=== PATIENT | female | born 1980 | race Caucasian/White ===

== ENCOUNTER → 2018-10-24 | Outpatient (REF) | payer OTHER ==
[2018-10-24 13:09] LABS: HEMATOCRIT 37.1 % (36.0-47.0); HEMOGLOBIN 12.2 g/dl (12.0-15.5); MEAN CORPUSCULAR HEMOGLOBIN 27.7 pg (27.0-33.0); MEAN CORPUSCULAR HGB CONC 32.9 g/dl (32.0-36.5); MEAN CORPUSCULAR VOLUME 84.1 fl (80.0-96.0); PLATELET COUNT, AUTOMATED 322 10^3/uL (150-450); RED BLOOD COUNT 4.41 10^6/uL (4.00-5.40); WHITE BLOOD COUNT 8.8 10^3/uL (4.0-10.0)
[2018-10-24 14:10] LABS: ALBUMIN 3.4 GM/DL (3.2-5.2); ALT/SGPT 25 U/L (12-78); BILIRUBIN,TOTAL 0.4 MG/DL (0.2-1.0); BLOOD UREA NITROGEN 10 MG/DL (7-18); CALCIUM LEVEL 8.2 MG/DL (8.5-10.1); CARBON DIOXIDE LEVEL 26 MEQ/L (21-32); CHLORIDE LEVEL 106 MEQ/L (98-107); CHOLESTEROL LEVEL 191 MG/DL (<200); CHOLESTEROL RISK RATIO 6.821 (<5); GLOMERULAR FILTRATION RATE > 60.0 (>60); GLUCOSE, FASTING 100 MG/DL (70-100); HDL CHOLESTEROL 28 MG/DL (>40); LDL CHOLESTEROL 115 MG/DL (<100); MAGNESIUM LEVEL 2.3 MG/DL (1.8-2.4); NON-HDL-C 163 MG/DL; POTASSIUM SERUM 4.1 MEQ/L (3.5-5.1); SODIUM LEVEL 141 MEQ/L (136-145); THYROID STIMULATING HORMONE 0.327 uIU/ML (0.358-3.740); TOTAL PROTEIN 6.8 GM/DL (6.4-8.2); TRIGLYCERIDES LEVEL 242 MG/DL (<150)
== END ==
LOC: M SFHCADAM 08:58
PROVIDERS: ATTEND Physician Assistant
DX: I10 Essential (primary) hypertension (principal); G43.109 Migraine with aura, not intractable, without status migrainosus; E66.01 Morbid (severe) obesity due to excess calories

== ENCOUNTER → 2019-01-20 | Outpatient (CLI) | payer OTHER, SELFPAY ==
[2019-01-20 17:13] LABS: ALBUMIN 3.4 GM/DL (3.2-5.2); ALT/SGPT 28 U/L (12-78); BILIRUBIN,TOTAL 0.4 MG/DL (0.2-1.0); BLOOD UREA NITROGEN 13 MG/DL (7-18); CALCIUM LEVEL 8.4 MG/DL (8.5-10.1); CARBON DIOXIDE LEVEL 28 MEQ/L (21-32); CHLORIDE LEVEL 107 MEQ/L (98-107); CHOLESTEROL LEVEL 167 MG/DL (<200); CHOLESTEROL RISK RATIO 5.964 (<5); GLOMERULAR FILTRATION RATE > 60.0 (>60); GLUCOSE, FASTING 94 MG/DL (70-100); HDL CHOLESTEROL 28 MG/DL (>40); LDL CHOLESTEROL 108 MG/DL (<100); NON-HDL-C 139 MG/DL; POTASSIUM SERUM 4.3 MEQ/L (3.5-5.1); SODIUM LEVEL 142 MEQ/L (136-145); THYROID STIMULATING HORMONE 0.312 uIU/ML (0.358-3.740); TOTAL PROTEIN 6.9 GM/DL (6.4-8.2); TRIGLYCERIDES LEVEL 154 MG/DL (<150)
== END ==
LOC: M ADAMS 09:05
PROVIDERS: ATTEND Physician Assistant
DX: I10 Essential (primary) hypertension (principal); E78.2 Mixed hyperlipidemia; E05.90 Thyrotoxicosis, unspecified without thyrotoxic crisis or storm

== ENCOUNTER → 2019-06-30 | Outpatient (CLI) | payer OTHER, SELFPAY ==
[2019-06-30 18:05] LABS: ALBUMIN 3.5 GM/DL (3.2-5.2); ALT/SGPT 24 U/L (12-78); BILIRUBIN,TOTAL 0.4 MG/DL (0.2-1.0); BLOOD UREA NITROGEN 12 MG/DL (7-18); CALCIUM LEVEL 8.6 MG/DL (8.5-10.1); CARBON DIOXIDE LEVEL 29 MEQ/L (21-32); CHLORIDE LEVEL 107 MEQ/L (98-107); CHOLESTEROL LEVEL 190 MG/DL (<200); CHOLESTEROL RISK RATIO 6.129 (<5); GLOMERULAR FILTRATION RATE > 60.0 (>58); GLUCOSE, FASTING 104 MG/DL (70-100); HDL CHOLESTEROL 31 MG/DL (>40); LDL CHOLESTEROL 127 MG/DL (<100); NON-HDL-C 159 MG/DL; POTASSIUM SERUM 4.2 MEQ/L (3.5-5.1); SODIUM LEVEL 140 MEQ/L (136-145); TOTAL PROTEIN 7.3 GM/DL (6.4-8.2); TRIGLYCERIDES LEVEL 158 MG/DL (<150)
== END ==
LOC: M LABDRWAD 08:36
PROVIDERS: ATTEND Physician Assistant
DX: I10 Essential (primary) hypertension (principal); E78.2 Mixed hyperlipidemia; E05.90 Thyrotoxicosis, unspecified without thyrotoxic crisis or storm

== ENCOUNTER → 2019-12-25 | Outpatient (REF) | payer OTHER ==
[2019-12-25 17:20] LABS: ALBUMIN 3.7 GM/DL (3.2-5.2); ALT/SGPT 28 U/L (12-78); BILIRUBIN,TOTAL 0.4 MG/DL (0.2-1.0); BLOOD UREA NITROGEN 13 MG/DL (7-18); CALCIUM LEVEL 8.7 MG/DL (8.5-10.1); CARBON DIOXIDE LEVEL 26 MEQ/L (21-32); CHLORIDE LEVEL 108 MEQ/L (98-107); CHOLESTEROL LEVEL 200 MG/DL (<200); CHOLESTEROL RISK RATIO 5.405 (<5); CREATININE FOR GFR 0.78 MG/DL (0.55-1.30); GLOMERULAR FILTRATION RATE > 60.0 (>58); GLUCOSE, FASTING 97 MG/DL (70-100); HDL CHOLESTEROL 37 MG/DL (>40); LDL CHOLESTEROL 134 MG/DL (<100); NON-HDL-C 163 MG/DL; POTASSIUM SERUM 4.3 MEQ/L (3.5-5.1); SODIUM LEVEL 141 MEQ/L (136-145); THYROID STIMULATING HORMONE 0.638 uIU/ML (0.358-3.740); TOTAL PROTEIN 7.3 GM/DL (6.4-8.2); TRIGLYCERIDES LEVEL 146 MG/DL (<150)
== END ==
LOC: M SFHCADAM 13:04
PROVIDERS: ATTEND Physician Assistant
DX: I10 Essential (primary) hypertension (principal); E78.2 Mixed hyperlipidemia; E05.90 Thyrotoxicosis, unspecified without thyrotoxic crisis or storm

== ENCOUNTER → 2020-06-26 | Outpatient (REF) | payer OTHER, SELFPAY ==
[2020-06-26 13:14] LABS: ALBUMIN 3.5 GM/DL (3.2-5.2); ALT/SGPT 29 U/L (12-78); BILIRUBIN,TOTAL 0.4 MG/DL (0.2-1.0); BLOOD UREA NITROGEN 10 MG/DL (7-18); CALCIUM LEVEL 8.9 MG/DL (8.5-10.1); CARBON DIOXIDE LEVEL 28 MEQ/L (21-32); CHLORIDE LEVEL 107 MEQ/L (98-107); CHOLESTEROL LEVEL 213 MG/DL (<200); CHOLESTEROL RISK RATIO 7.607 (<5); CREATININE FOR GFR 0.74 MG/DL (0.55-1.30); GLOMERULAR FILTRATION RATE > 60.0 (>58); GLUCOSE, FASTING 118 MG/DL (70-100); HDL CHOLESTEROL 28 MG/DL (>40); LDL CHOLESTEROL 151 MG/DL (<100); NON-HDL-C 185 MG/DL; POTASSIUM SERUM 4.2 MEQ/L (3.5-5.1); SODIUM LEVEL 139 MEQ/L (136-145); THYROID STIMULATING HORMONE 0.822 uIU/ML (0.358-3.740); TOTAL PROTEIN 7.1 GM/DL (6.4-8.2); TRIGLYCERIDES LEVEL 170 MG/DL (<150)
== END ==
LOC: M SFHCADAM 08:24
PROVIDERS: ATTEND Physician Assistant
DX: I10 Essential (primary) hypertension (principal); E78.2 Mixed hyperlipidemia; E05.90 Thyrotoxicosis, unspecified without thyrotoxic crisis or storm

== ENCOUNTER → 2020-10-16 | Outpatient (REF) | payer OTHER ==
[2020-10-16 14:01] LABS: ALBUMIN 3.5 GM/DL (3.2-5.2); ALT/SGPT 31 U/L (12-78); BILIRUBIN,TOTAL 0.3 MG/DL (0.2-1.0); BLOOD UREA NITROGEN 13 MG/DL (7-18); CALCIUM LEVEL 8.7 MG/DL (8.5-10.1); CARBON DIOXIDE LEVEL 29 MEQ/L (21-32); CHLORIDE LEVEL 107 MEQ/L (98-107); CHOLESTEROL LEVEL 208 MG/DL (<200); CHOLESTEROL RISK RATIO 6.709 (<5); CREATININE FOR GFR 0.86 MG/DL (0.55-1.30); GLOMERULAR FILTRATION RATE > 60.0 (>58); GLUCOSE, FASTING 98 MG/DL (70-100); HDL CHOLESTEROL 31 MG/DL (>40); LDL CHOLESTEROL 146 MG/DL (<100); NON-HDL-C 177 MG/DL; POTASSIUM SERUM 4.5 MEQ/L (3.5-5.1); SODIUM LEVEL 142 MEQ/L (136-145); THYROID STIMULATING HORMONE 0.922 uIU/ML (0.358-3.740); TOTAL PROTEIN 7.3 GM/DL (6.4-8.2); TRIGLYCERIDES LEVEL 156 MG/DL (<150)
== END ==
LOC: M SFHCADAM 08:13
PROVIDERS: ATTEND Physician Assistant
DX: E78.2 Mixed hyperlipidemia (principal); I10 Essential (primary) hypertension; E05.90 Thyrotoxicosis, unspecified without thyrotoxic crisis or storm

== ENCOUNTER 2021-01-28 08:51 | Emergency (ER) | payer OTHER ==
[~2021-01-28] VITALS: Ht 167.6 cm; Wt 156.6 kg
[2021-01-28] MEDS ORDERED: SM P325T2 (09:03)
[2021-01-28] MEDS ORDERED: LISI20TA33 (09:03)
[2021-01-28] MEDS ORDERED: METH-1164 (09:03)
[2021-01-28] MEDS ORDERED: ONDA8TAB10 (09:03)
[2021-01-28] MEDS ORDERED: INDO-16 (09:03)
[2021-01-28] MEDS ORDERED: LIDOCAINE 5% (LIDODERM) PATCH TD ONE (11:20)
[2021-01-28] MEDS ORDERED: CYCLOBENZAPRINE 10MG TABLET PO ONE (11:20)
[2021-01-28] MEDS ORDERED: ACETAMINOPHEN 500 MG TAB PO ONE (11:20)
--- NOTE | 2021-01-28 12:20 | REP ---
INDICATION: midline low back pain COMPARISON: None. TECHNIQUE: AP, lateral, bilateral oblique, and coned-down views of the lumbar spine. FINDINGS: Alignment and lordosis maintained. Vertebral bodies are intact. No acute fracture/compression injury or subluxation. No obvious spondylolysis or spondylolisthesis. Moderate multilevel degenerative changes include endplate sclerosis with very subtle early marginal spurring and facet hypertrophy. Disc space narrowing at L5-S1 and L4-5 noted as well.. IMPRESSION: Moderate multilevel degenerative changes. <Electronically signed by Ariel Levi > 01/28/21 [id number]
[2021-01-28] MEDS ORDERED: ONDANSETRON 4 MG ORAL DISINTEGRATING TAB PO ONE (12:25)
[2021-01-28] MEDS ORDERED: CYCL5TAB PO (13:05)
[2021-01-28] MEDS ORDERED: LIDO5DIS41 TOP (13:05)
[2021-01-28 13:09] VITALS: BP 142/91
[2021-01-28] MEDS ORDERED: **NOTE PATIENT COMMENT** MISC XX ONE (23:30)
== END 2021-01-28 13:21 | disposition home or self-care (01) ==
LOC: M ED 08:51
DX: S39.012A Strain of muscle, fascia and tendon of lower back, initial encounter (principal); X50.1XXA Overexertion from prolonged static or awkward postures, initial encounter; Y92.9 Unspecified place or not applicable; Y93.9 Activity, unspecified; Y99.9 Unspecified external cause status; M51.36 Other intervertebral disc degeneration, lumbar region; E66.9 Obesity, unspecified; I10 Essential (primary) hypertension; G43.909 Migraine, unspecified, not intractable, without status migrainosus; M51.37 Other intervertebral disc degeneration, lumbosacral region
CPT/HCPCS: 72110; 84702; 99283; Q0162

== ENCOUNTER → 2021-02-10 | Outpatient (CLI) | payer OTHER ==
[~2021-02-10] MED LIST: CYCL5TAB PO; INDO-16; LIDO5DIS41 TOP; LISI20TA33; METH-1164; ONDA8TAB10; PROHANCE 279.3MG/ML 15ML VIAL As Ordered ONE; PROHANCE 279.3MG/ML 5ML VIAL As Ordered ONE; SM P325T2
== END ==
LOC: M RAD 16:56
PROVIDERS: ATTEND Physician Assistant
DX: Z53.8 Procedure and treatment not carried out for other reasons (principal)

== ENCOUNTER → 2021-03-03 | Outpatient (CLI) | payer OTHER ==
--- NOTE | 2021-03-03 22:00 | REPVR ---
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 Contrast material: PROHANCE; Contrast volume: 20 ml; Contrast route: INTRAVENOUS (IV); COMPARISON: No relevant prior studies available. FINDINGS: There is a 2 cm mucous retention cyst right maxillary sinus. 3.9 cm in height by 2.2 cm AP dimension by 3.4 cm in transverse dimension sellar and suprasellar lobular mass lesion. At the level of the sella turcica this mass fills the sella turcica and extends into the right left cavernous sinus. There is severe superior extension of this mass impressing on the optic chiasm. The optic chiasm is elevated to the level of the 3rd ventricle. Vessels of the [id number] are severely elevated including the A1 segments and pericallosal vessels. This is bright signal intensity on the T1 and low signal intensity on T2 very suspicious for a hemorrhagic lesion. This may represent an acute hemorrhagic bleed into the pituitary gland/pituitary apoplexy. The size of this may be related to massive bleed or additional large underlying adrenal mass that has hemorrhage. There is subtle peripheral enhancement. IMPRESSION: 1. Suspect acute bleed into the pituitary/pituitary apoplexy. 2. Massive lobular structure 3.9 x 2.2 x 3.4 cm and blood signal intensity. This extends into the cavernous sinus right and left and displaces the optic chiasm and A1 segment of the internal carotid arteries. Also suspect bright signal intensity blood extending into the 3rd ventricle. Electronically signed by: Marcial Franks On 03/03/2021 21:59:31 PM
== END ==
LOC: M RAD 17:20
PROVIDERS: ATTEND Physician Assistant
DX: J34.1 Cyst and mucocele of nose and nasal sinus (principal); H53.9 Unspecified visual disturbance
CPT/HCPCS: 70553; A9576

== ENCOUNTER → 2021-04-28 | Outpatient (REF) | payer OTHER ==
[~2021-04-28] MED LIST changes: -PROHANCE 279.3MG/ML 15ML VIAL As Ordered ONE; -PROHANCE 279.3MG/ML 5ML VIAL As Ordered ONE
[2021-04-28 14:29] LABS: ALBUMIN 3.2 GM/DL (3.2-5.2); ALT/SGPT 26 U/L (12-78); BILIRUBIN,TOTAL 0.7 MG/DL (0.2-1.0); BLOOD UREA NITROGEN 13 MG/DL (7-18); CALCIUM LEVEL 8.3 MG/DL (8.5-10.1); CARBON DIOXIDE LEVEL 24 MEQ/L (21-32); CHLORIDE LEVEL 107 MEQ/L (98-107); CHOLESTEROL LEVEL 232 MG/DL (<200); CHOLESTEROL RISK RATIO 7.733 (<5); CREATININE FOR GFR 0.82 MG/DL (0.55-1.30); GLOMERULAR FILTRATION RATE > 60.0 (>58); GLUCOSE, FASTING 119 MG/DL (70-100); HDL CHOLESTEROL 30 MG/DL (>40); LDL CHOLESTEROL 161 MG/DL (<100); NON-HDL-C 202 MG/DL; POTASSIUM SERUM 4.3 MEQ/L (3.5-5.1); SODIUM LEVEL 139 MEQ/L (136-145); TOTAL PROTEIN 6.9 GM/DL (6.4-8.2); TRIGLYCERIDES LEVEL 206 MG/DL (<150)
== END ==
LOC: M SFHCADAM 08:30
PROVIDERS: ATTEND Physician Assistant
DX: E78.2 Mixed hyperlipidemia (principal); I10 Essential (primary) hypertension; E05.90 Thyrotoxicosis, unspecified without thyrotoxic crisis or storm

== ENCOUNTER → 2021-04-28 | Outpatient (REF) | payer OTHER ==
[2021-04-28 13:18] LABS: BLOOD UREA NITROGEN 12 MG/DL (7-18); CALCIUM LEVEL 8.6 MG/DL (8.5-10.1); CARBON DIOXIDE LEVEL 25 MEQ/L (21-32); CHLORIDE LEVEL 107 MEQ/L (98-107); CREATININE FOR GFR 0.83 MG/DL (0.55-1.30); GLOMERULAR FILTRATION RATE > 60.0 (>58); GLUCOSE, FASTING 123 MG/DL (70-100); POTASSIUM SERUM 4.2 MEQ/L (3.5-5.1); SODIUM LEVEL 138 MEQ/L (136-145)
[2021-04-28 13:40] LABS: CORTISOL AM 8.7 UG/DL (4.3-22.4)
== END ==
LOC: M LABDRWAD 12:10
PROVIDERS: ATTEND Internal Medicine Endocrinology, Diabetes & Metabolism
DX: D35.2 Benign neoplasm of pituitary gland (principal)

== ENCOUNTER → 2021-05-05 | Outpatient (REF) | payer OTHER ==
[~2021-05-05] MED LIST changes: +ONDA-84; -ONDA8TAB10
[2021-05-05 14:56] LABS: HEMOGLOBIN A1c 6.2 %
== END ==
LOC: M SFHCADAM 10:32
PROVIDERS: ATTEND Physician Assistant
DX: R73.9 Hyperglycemia, unspecified (principal)

== ENCOUNTER → 2021-08-04 | Outpatient (REF) | payer OTHER ==
[2021-08-04 12:56] LABS: ALBUMIN 3.6 GM/DL (3.2-5.2); ALT/SGPT 29 U/L (12-78); BILIRUBIN,TOTAL 0.5 MG/DL (0.2-1.0); BLOOD UREA NITROGEN 12 MG/DL (7-18); CALCIUM LEVEL 9.1 MG/DL (8.5-10.1); CARBON DIOXIDE LEVEL 27 MEQ/L (21-32); CHLORIDE LEVEL 109 MEQ/L (98-107); CHOLESTEROL LEVEL 160 MG/DL (<200); CHOLESTEROL RISK RATIO 5.333 (<5); CREATININE FOR GFR 0.78 MG/DL (0.55-1.30); GLOMERULAR FILTRATION RATE > 60.0 (>58); GLUCOSE, FASTING 109 MG/DL (70-100); HDL CHOLESTEROL 30 MG/DL (>40); LDL CHOLESTEROL 97 MG/DL (<100); NON-HDL-C 130 MG/DL; POTASSIUM SERUM 4.2 MEQ/L (3.5-5.1); SODIUM LEVEL 142 MEQ/L (136-145); TOTAL PROTEIN 7.6 GM/DL (6.4-8.2); TRIGLYCERIDES LEVEL 163 MG/DL (<150)
[2021-08-04 13:06] LABS: HEMOGLOBIN A1c 6.6 %
== END ==
LOC: M SFHCADAM 11:22
PROVIDERS: ATTEND Physician Assistant
DX: I10 Essential (primary) hypertension (principal); E78.2 Mixed hyperlipidemia; R73.9 Hyperglycemia, unspecified

== ENCOUNTER → 2021-11-03 | Outpatient (REF) | payer OTHER | LOC: M SFHCADAM 09:38 | PROVIDERS: ATTEND Physician Assistant | DX: Z53.9 Procedure and treatment not carried out, unspecified reason (principal) ==

== ENCOUNTER → 2021-11-10 | Outpatient (REF) | payer OTHER ==
[2021-11-10 13:56] LABS: ALBUMIN 3.4 GM/DL (3.2-5.2); ALT/SGPT 32 U/L (12-78); BILIRUBIN,TOTAL 0.5 MG/DL (0.2-1.0); BLOOD UREA NITROGEN 11 MG/DL (7-18); CALCIUM LEVEL 8.4 MG/DL (8.5-10.1); CARBON DIOXIDE LEVEL 27 MEQ/L (21-32); CHLORIDE LEVEL 106 MEQ/L (98-107); CHOLESTEROL LEVEL 147 MG/DL (<200); GLOMERULAR FILTRATION RATE > 60.0 (>58); GLUCOSE, FASTING 119 MG/DL (70-100); HDL CHOLESTEROL 30 MG/DL (>40); LDL CHOLESTEROL 88 MG/DL (<100); NON-HDL-C 117 MG/DL; POTASSIUM SERUM 4.2 MEQ/L (3.5-5.1); SODIUM LEVEL 138 MEQ/L (136-145); TRIGLYCERIDES LEVEL 146 MG/DL (<150)
[2021-11-10 14:18] LABS: HEMOGLOBIN A1c 6.9 %
== END ==
LOC: M SFHCADAM 12:19
PROVIDERS: ATTEND Physician Assistant
DX: I10 Essential (primary) hypertension (principal); E78.2 Mixed hyperlipidemia

== ENCOUNTER → 2022-02-10 | Outpatient (REF) | payer OTHER ==
[2022-02-10 13:48] LABS: ALBUMIN 3.4 GM/DL (3.2-5.2); ALT/SGPT 34 U/L (12-78); BILIRUBIN,TOTAL 0.4 MG/DL (0.2-1.0); BLOOD UREA NITROGEN 12 MG/DL (7-18); CALCIUM LEVEL 9.1 MG/DL (8.5-10.1); CARBON DIOXIDE LEVEL 27 MEQ/L (21-32); CHLORIDE LEVEL 108 MEQ/L (98-107); CHOLESTEROL LEVEL 143 MG/DL (<200); CHOLESTEROL RISK RATIO 4.766 (<5); CREATININE FOR GFR 0.85 MG/DL (0.55-1.30); GLOMERULAR FILTRATION RATE > 60.0 (>58); GLUCOSE, FASTING 156 MG/DL (70-100); HDL CHOLESTEROL 30 MG/DL (>40); LDL CHOLESTEROL 86 MG/DL (<100); NON-HDL-C 113 MG/DL; POTASSIUM SERUM 4.1 MEQ/L (3.5-5.1); SODIUM LEVEL 142 MEQ/L (136-145); TOTAL PROTEIN 7.1 GM/DL (6.4-8.2); TRIGLYCERIDES LEVEL 133 MG/DL (<150)
[2022-02-10 15:11] LABS: HEMOGLOBIN A1c 7.1 %
== END ==
LOC: M SFHCADAM 09:56
PROVIDERS: ATTEND Physician Assistant
DX: E78.2 Mixed hyperlipidemia (principal); I10 Essential (primary) hypertension; R73.9 Hyperglycemia, unspecified; E05.90 Thyrotoxicosis, unspecified without thyrotoxic crisis or storm

== ENCOUNTER → 2022-06-09 | Outpatient (REF) | payer OTHER | LOC: M SFHCADAM 17:06 | PROVIDERS: ATTEND Family Medicine | DX: R05.1 Acute cough (principal) ==